=== PATIENT | female | born 1965 | race Caucasian/White ===

== ENCOUNTER 2018-03-07 16:03 | Observation (INO) ==
--- NOTE | 2018-03-07 16:35 | XR ---
EXAM DATE: 03/07/2018 4:31 PM EST AGE/SEX: 52 years / Female INDICATIONS: Chest pain CLINICAL DATA: This is the patient's initial encounter. Patient reports that signs and symptoms have been present for 1 day and indicates a pain score of 5/10. MEDICAL/SURGICAL HISTORY: None. None. COMPARISON: [facility], CHEST PA & LAT, 01/26/2017. . FINDINGS: The lungs are clear without infiltrate, nodule, or mass. There is no appreciable pleural effusion for technique. Heart and mediastinum are unremarkable. CONCLUSION: No acute cardiopulmonary disease. Electronically signed by: Lelia White MD Board Certified Radiologist 03/07/2018 4:33 PM EST
[2018-03-07 16:48] LABS: Activated Partial Thrombo Time 29.8 sec (23.4-31.7); Prothrombin Time 9.8 sec (9.8-11.6)
[2018-03-07 16:54] LABS: Baso # (Auto) 0.1 th/mm3 (0.0-0.2); Baso % (Auto) 0.6 % (0.0-2.0); Eos # (Auto) 0.4 th/mm3 (0.0-0.4); Eos % (Auto) 3.7 % (0.0-4.0); Hematocrit 41.6 % (35.0-46.0); Hemoglobin 13.4 gm/dL (11.6-15.3); Lymph # (Auto) 2.4 th/mm3 (1.0-4.8); Lymph % (Auto) 21.8 % (9.0-44.0); Mean Corpuscular HGB Conc 32.2 % (32.0-36.0); Mean Corpuscular Hemoglobin 26.5 pg (27.0-34.0); Mean Corpuscular Volume 82.3 fL (80.0-100.0); Mean Platelet Volume 8.4 fL (7.0-11.0); Mono # (Auto) 0.6 th/mm3 (0.0-0.9); Mono % (Auto) 5.8 % (0.0-8.0); Neut # (Auto) 7.7 th/mm3 (1.8-7.7); Neut % (Auto) 68.1 % (16.0-70.0); Platelet Count 361 th/mm3 (150-450); Red Blood Count 5.05 mil/mm3 (4.00-5.30); Red Cell Distribution Width 14.5 % (11.6-17.2); White Blood Count 11.2 th/mm3 (4.0-11.0)
--- NOTE | 2018-03-07 17:00 | ED ---
HPI General Chief complaint: Chest Pain Stated complaint: Chest pain Time Seen by Provider: 03/07/18 16:09 Source: patient Mode of arrival: ambulatory Limitations: no limitations History of Present Illness HPI narrative: Patient is a 52 year old female who comes in complaining of chest pain. She says she first had the pain at 3:30 this morning that woke her up from sleep. She says it went away on its own, but came back when she was driving herself to work. She says it is a sharp pain that starts in the left side of her chest and radiates across to the right and into the right arm. She says she felt short of breath while she had the pain. She has not taken anything for pain. She says she has never had this before. Severity is moderate. Related Data Home Medications Medication Instructions Recorded Confirmed hydrochlorothiazide 12.5 mg PO DAILY 03/07/18 03/07/18 losartan 25 mg PO DAILY 03/07/18 03/07/18 Allergies Allergy/AdvReac Type Severity Reaction Status Date / Time No Known Allergies Allergy Verified 03/07/18 16:13 Review of Systems ROS: all other systems reviewed are negative Constitutional Denies chills and Denies fever(s) ENT Denies dizziness Cardiovascular Reports chest pain, Denies edema and Reports dyspnea Respiratory Denies cough and Denies dyspnea Gastrointestinal Denies nausea and Denies vomiting Musculoskeletal Denies myalgias and Denies arthralgias Integumentary/Breasts Denies sores and Denies wounds Neurologic Denies focal weakness and Denies numbness [facility] Medical History Medical History Hypertension (Acute) Surgical History Surgical History No history of previous surgery (Acute) Social History Social History Substance History: No History of Abuse Second Hand Smoke Exposure: No Smoking Status: Never smoker How Often Do You Have a Drink Containing Alcohol: Never Recent Travel in [facility] within the Last 8 Weeks: No Recent Out of Country Travel within the Last 8 Weeks: No Immunization History Tetanus Immunization: <5 Years Exam Narrative Exam Narrative: GENERAL: Awake and alert, in no acute distress. SKIN: Focused skin assessment warm/dry. No wounds or signs of infection. HEAD: Atraumatic. Normocephalic. EYES: Pupils equal and round. No scleral icterus. No injection or drainage. ENT: No nasal bleeding or discharge. Mucous membranes pink and moist. NECK: Trachea midline. No JVD. CARDIOVASCULAR: Regular rate and rhythm. No murmur appreciated. RESPIRATORY: No accessory muscle use. Clear to auscultation. Breath sounds equal bilaterally. GASTROINTESTINAL: Abdomen soft, non-tender, nondistended. MUSCULOSKELETAL: No obvious deformities. No clubbing. No cyanosis. No edema. NEUROLOGICAL: Awake and alert. No obvious cranial nerve deficits. Motor grossly within normal limits. Normal speech. PSYCHIATRIC: Appropriate mood and affect; insight and judgment normal. Course Initial Documented Vital Signs Pulse Rate 78 03/07/18 16:05 Pulse Oximetry 98 03/07/18 16:05 Last Documented Vital Signs Temperature 98.5 F 03/07/18 16:10 Pulse Rate 78 03/07/18 16:10 Respiratory Rate 18 03/07/18 16:10 Blood Pressure 156/76 H 03/07/18 16:10 Pulse Oximetry 98 03/07/18 16:10 Medical Decision Making MDM Narrative Medical decision making narrative: Patient is a 52 year old female who comes in complaining of chest pain. Exam shows no acute abnormalities. IV established, labs sent. Patient connected to the digital experience manager. Labs show no acute abnormalities, Troponin is negative. CXR shows no acute abnormalities. Given Aspirin. Patient will be placed in chest pain center to rule out ACS. Medical Screen Exam Complete: Yes Emergency Medical Condition: Yes Differential Diagnosis Differential Diagnosis: ACS vs NSTEMI vs STEMI Medical Records Medical records reviewed: Yes I reviewed the patient's medical records. Lab Data Lab results reviewed: Yes I reviewed the patient's lab results. Result diagrams: 03/07/18 16:10 03/07/18 16:10 Lab Results 03/07/18 03/07/18 03/07/18 Range/Units 16:10 16:10 16:10 CBC w Diff Auto diff final WBC 11.2 H (4.0-11.0) th/mm3 RBC 5.05 (4.00-5.30) mil/mm3 Hgb 13.4 (11.6-15.3) gm/dL Hct 41.6 (35.0-46.0) % MCV 82.3 (80.0-100.0) fL MCH 26.5 L (27.0-34.0) pg MCHC 32.2 (32.0-36.0) % RDW 14.5 (11.6-17.2) % Plt Count 361 (150-450) th/mm3 MPV 8.4 (7.0-11.0) fL Neut % (Auto) 68.1 (16.0-70.0) % Lymph % (Auto) 21.8 (9.0-44.0) % Casey % (Auto) 5.8 (0.0-8.0) % Eos % (Auto) 3.7 (0.0-4.0) % Baso % (Auto) 0.6 (0.0-2.0) % Neut # (Auto) 7.7 (1.8-7.7) th/mm3 Lymph # (Auto) 2.4 (1.0-4.8) th/mm3 Casey # (Auto) 0.6 (0.0-0.9) th/mm3 Eos # (Auto) 0.4 (0.0-0.4) th/mm3 Baso # (Auto) 0.1 (0.0-0.2) th/mm3 WBC Differential . Differential Comment . PT 9.8 (9.8-11.6) sec INR 1.0 Ratio APTT 29.8 (23.4-31.7) sec Sodium 139 (136-145) meq/L Potassium 3.6 (3.5-5.1) meq/L Chloride 107 (98-107) meq/L Carbon Dioxide 27.8 (21.0-32.0) meq/L Anion Gap 4 L (5-15) meq/L BUN 12 (7-18) mg/dL Creatinine 0.71 (0.50-1.00) mg/dL Estimated GFR 86 L (>89) mL/min Random Glucose 90 (74-106) mg/dL Calcium 8.4 L (8.5-10.1) mg/dL Total Bilirubin 0.2 (0.2-1.0) mg/dL AST 17 (15-37) U/L ALT 22 (10-53) U/L Alkaline Phosphatase 103 (45-117) U/L Total Creatine Kinase 51 (26-192) U/L Troponin I Less than 0.02 L (0.02-0.05) ng/mL Total Protein 7.7 (6.4-8.2) g/dL Albumin 3.2 L (3.4-5.0) g/dL Imaging Data Radiologist's impression: Chest X-Ray 03/07/18 16:17 CONCLUSION: No acute cardiopulmonary disease. ECG Data EKG Prior to Arrival: No Attestation: I personally reviewed and interpreted this ECG as follows: Interpretation: ECG shows NSR at a rate of 75, no ST elevation or depression, LVH Discharge Plan Discharge Disposition Patient Disposition: ED Admit(ED Internal Use Only) Discharge Condition Condition: Stable Discharge Details Diagnosis: Atypical chest pain Physicians Team ED Provider: Isabell Crow Primary Care Provider: Vannessa Hyde Rxs /Orders / Referrals /Forms Prescriptions: No Action losartan 25 mg Tablet 25 mg PO DAILY RF: 0 hydrochlorothiazide 12.5 mg Tablet 12.5 mg PO DAILY RF: 0 Discharge Instructions Patient Printed Instructions: Chest Pain (ED) Status ED Status: With Doctor
[2018-03-07 17:10] LABS: Anion Gap 4 meq/L (5-15); Blood Urea Nitrogen 12 mg/dL (7-18); Calcium 8.4 mg/dL (8.5-10.1); Carbon Dioxide 27.8 meq/L (21.0-32.0); Chloride 107 meq/L (98-107); Glomerular Filtration Rate 86 mL/min (>89); Glucose,Random 90 mg/dL (74-106); Potassium 3.6 meq/L (3.5-5.1); Sodium 139 meq/L (136-145)
[2018-03-07 17:11] LABS: Alanine Aminotransferase 22 U/L (10-53); Albumin 3.2 g/dL (3.4-5.0); Alkaline Phosphatase 103 U/L (45-117); Aspartate Aminotransferase 17 U/L (15-37); Creatine Kinase 51 U/L (26-192); Total Protein 7.7 g/dL (6.4-8.2)
[2018-03-07] MEDS ORDERED: Morphine Inj 4 MG/ML Vial IV.PUSH PRN (18:11)
[2018-03-07 20:50] VITALS: RESP 18
[2018-03-08 09:33] VITALS: BP 130/86; TEMP 96.6
[2018-03-08 09:50] VITALS: PULSE 67
--- NOTE | 2018-03-08 09:51 | P.HPIM ---
History of Present Illness Primary Care Physician: Vannessa Hyde Chief Complaint: Chest pain History of Present Illness: 52-year-old female with known history of hypertension who presented to hospital for evaluation of chest discomfort. Patient states that she was in normal state of health until 3 AM that yesterday morning when she woke up at a middle of sleep with the pain located in the anterior part of her chest and radiating out to the right shoulder and a dullness sensation which was between a 6 - 7 on a pain scale with without any radiation to the neck, back. She denied any diaphoresis, shortness of breath, nausea, vomiting. Patient states that the pain went away in approximately 10 minutes on its own without any medication. The patient indicates that she did well throughout the day and that she went to drive to work in approximately 3 PM she started developing the same pain again, however the pain still lasted longer and that she was on her way to [place] she drove to the [place] [facility]. She states that the pain was approximately 30 minutes and it was still persistent when she came to the emergency department but did resolve on its own without any treatment or medications. Patient was given 4 baby aspirin upon presentation to the ER. The patient been asymptomatic since being in the hospital. Patient states that she has had cardiac workup done many years ago which was all unremarkable when she was first diagnosed with hypertension. But she is not followed by any mess attendant or any recent cardiac workup. Patient had evaluation in the emergency department was unremarkable was recommended by the ER physician of the patient be observed in the chest pain center for further evaluation and management. Diagnosis (1) Atypical chest pain: Review of Systems Review of Systems: all other systems reviewed are negative Cardiovascular: Reports chest pain PMFSH History History Provided By: Patient Medical History Medical History Hypertension (Acute) Surgical History Surgical History No history of previous surgery (Acute) Family History Family History Mother Family history of heart disease Family history of lymphoma Father Family history of heart disease Social History Social History Substance History: No History of Abuse Second Hand Smoke Exposure: No Smoking Status: Never smoker How Often Do You Have a Drink Containing Alcohol: Never Recent Travel in [facility] within the Last 8 Weeks: No Recent Out of Country Travel within the Last 8 Weeks: No Immunization History Tetanus Immunization: <5 Years Medications and Allergies Allergies Allergy/AdvReac Type Severity Reaction Status Date / Time No Known Allergies Allergy Verified 03/07/18 16:13 Home Medications Medication Instructions Recorded Confirmed Type hydrochlorothiazide 12.5 mg PO DAILY 03/07/18 03/07/18 History losartan 25 mg PO DAILY 03/07/18 03/07/18 History Active Medications: Active Medications Morphine Sulfate (Morphine Inj) 2 mg IV.PUSH Q4H PRN PRN Reason: CHEST PAIN Sodium Chloride (Ns Flush) 2 ml IV.FLUSH UNSCH PRN PRN Reason: FLUSH AFTER USING IV ACCESS Last Admin: 03/07/18 16:30 Dose: 2 ml Physical Exam Vital signs: Last Vital Signs Temp 96.6 F L 03/08/18 08:00 Pulse 63 03/08/18 08:00 Resp 18 03/08/18 08:00 BP 130/86 03/08/18 08:00 Pulse Ox 97 03/08/18 08:00 Intake & Output 03/06/18 03/07/18 03/08/18 03/09/18 06:59 06:59 06:59 06:59 Weight 56 kg Narrative: GENERAL: Well-developed, well-nourished, in no acute distress. alert and orientated HEENT: Head is normocephalic without any lesions or masses noted. Facial features are symmetric. Eyes: Pupils equal round reactive to light. Extraocular muscles are intact. Conjunctivae were clear. Oropharyngeal: Pharynx without any erythema edema. Tongue is midline without deviation. Buccal mucosa is moist without any masses or lesions NECK: Supple without any masses. Trachea midline no deviation. No JVD, CARDIAC: Regular rhythm, regular rate. S1/S2 are heard. No murmurs gallops or rubs. LUNGS: Clear to auscultation bilaterally. No wheeze, rhonchi or rales. No use of accessory muscles on inspiration or expiration. ABDOMEN: Soft, nontender. Nondistended. Bowel sounds heard in all 4 quadrants. No organomegaly or masses. Negative rebound, negative guarding EXTREMITIES: No edema, pulses are equal bilaterally. No cyanosis or clubbing NEUROLOGY: Mood and affect appear appropriate. Cranial nerves II through XII grossly intact. Muscle strength 5/5 in upper and lower extremities bilaterally. Deep tendon reflexes are 2+ in upper and lower extremities bilaterally. Results Labs CBC & Chem 7: 03/07/18 16:10 03/07/18 16:10 Imaging Impressions Chest X-Ray 03/07/18 16:17 CONCLUSION: No acute cardiopulmonary disease. Caprini VTE Risk Assessment Caprini VTE Risk Assessment: No/Low Risk (score <= 1) Caprini Risk Assessment Model: Point Value = 1 Point Value = 2 Point Value = 3 Point Value = 5 Age 41-60 Minor surgery BMI > 25 kg/m2 Swollen legs Varicose veins or History of unexplained or recurrent spontaneous Oral contraceptives or hormone replacement Sepsis (< 1 month) Serious lung disease, including pneumonia (< 1 month) Abnormal pulmonary function Acute myocardial infarction Congestive heart failure (< 1 month) History of inflammatory bowel disease Medical patient at bed rest Age 61-74 Arthroscopic surgery Major open surgery (> 45 min) Laparoscopic surgery (> 45 min) Malignancy Confined to bed (> 72 hours) Immobilizing plaster cast Central venous access Age >= 75 History of VTE Family history of VTE Factor V Leiden Prothrombin [id number] Lupus anticoagulant Anticardiolipin antibodies Elevated serum homocysteine Heparin-induced thrombocytopenia Other congenital or acquired thrombophilia Stroke (< 1 month) Elective arthroplasty Hip, pelvis, or leg fracture Acute spinal cord injury (< 1 month) Prophylaxis Regimen: Total Risk Factor Score Risk Level Prophylaxis Regimen 0-1 Low Early ambulation 2 Moderate Order ONE of the following: *Sequential Compression Device (SCD) *Heparin 5000 units SQ BID 3-4 Higher Order ONE of the following medications: *Heparin 5000 units SQ TID *Enoxaparin/Lovenox 40 mg SQ daily (WT < 150 kg, CrCl > 30 mL/min) *Enoxaparin/Lovenox 30 mg SQ daily (WT < 150 kg, CrCl > 10-29 mL/min) *Enoxaparin/Lovenox 30 mg SQ BID (WT < 150 kg, CrCl > 30 mL/min) AND/OR *Sequential Compression Device (SCD) 5 or more Highest Order ONE of the following medications: *Heparin 5000 units SQ TID (Preferred with Epidurals) *Enoxaparin/Lovenox 40 mg SQ daily (WT < 150 kg, CrCl > 30 mL/min) *Enoxaparin/Lovenox 30 mg SQ daily (WT < 150 kg, CrCl > 10-29 mL/min) *Enoxaparin/Lovenox 30 mg SQ BID (WT < 150 kg, CrCl > 30 mL/min) AND *Sequential Compression Device (SCD) Assessment and Plan (1) Atypical chest pain: Code(s): R07.89 - Other chest pain Status: Acute Plan Chest pain, atypical Patient with increased risk factors to include age, hypertension, family history of heart disease Patient been ruled out for acute coronary event with serial cardiac enzymes that are negative EKGs were performed reviewed by myself which does show sinus rhythm without any acute abnormalities Exercise stress test was performed and indicated no signs of perfusion defect, low risk. Continue aspirin, Groom/morphine for pain control Continue monitor telemetry Patient is ruled out for acute coronary event and underlying ischemia. Patient be discharged home with outpatient follow-up. Hypertension Continue home medications DVT prevention Low risk, early ambulation Discharge Planning: Discharge home in stable condition Activity: Ad phyllis. Diet: Healthy heart diet Medication per medication reconciliation Follow-up with primary medical doctor in 1 week H&P: Quality VTE Deep Vein Thrombosis/Pulmonary Embolism Present on Admission: No
[2018-03-08] MEDS ORDERED: Regadenoson Inj 0.4 MG/5 ML Syringe IV.PUSH ONE ×2 (10:49→12:13)
[2018-03-08 13:31] VITALS: O2SAT 95
--- NOTE | 2018-03-08 14:10 | NM ---
EXAM DATE: 03/08/2018 1:49 PM EST AGE/SEX: 52 years / Female INDICATIONS:Angina. . Chest pain. Abnormal standard ETT. CLINICAL DATA: This is the patient's initial encounter. Patient reports that signs and symptoms have been present for 1 day and indicates a pain score of 2/10. MEDICAL/SURGICAL HISTORY: Hypertension. None. Tubal ligation. COMPARISON: No prior exams available for comparison. DOSE: 8.8 mCi Tc 99m Myoview at rest 26.5 mCi [id number] at stress 0.4 mg Lexiscan STRESS SYMPTOMS: Chest tightness. EJECTION FRACTION: 67 % TECHNIQUE: The patient underwent pharmacologic stress with infusion of prescribed dose. Continuous ECG tracing was monitored during stress. Gated SPECT imaging was performed after stress and conventi onal SPECT imaging was performed at rest. The examination was performed on a SPECT/CT scanner, both attenuation and non-corrected datasets were reviewed. FINDINGS: Distribution: The maximum perfused segment at stress is in the inferior wall. Perfusion Study: The pattern of perfusion at stress show fixed diminished perfusion to the apex wit h no reversibility to suggest ischemia.. Gated Study: There are intact wall motion and wall thickening without hypokinetic or dyskinetic segm ents. The ejection fraction is calculated at 67%. RISK CATEGORY: Low (<1% Annual Mortality Rate) CONCLUSION: 1. Fixed diminished perfusion to the apex suggesting apical thinning versus old apical infarct. 2. No scintigraphic findings of ischemia. 3. Adequate wall motion throughout been estimated ejection fraction of 67%. Electronically signed by: Oni Underwood MD Board Certified Radiologist 03/08/2018 2:09 PM EST
--- NOTE | 2018-03-08 16:00 | TR ---
Date Performed: 03/08/2018 Time Performed: 10:24:20 DOCTOR: Venu Soares DRUG LIST: CLINICAL HISTORY: REASON FOR TEST: Chest pain REASON FOR ENDING: OBSERVATION: CONCLUSION: Patient tolerated VARINDER protocol with Total Exercise Time=2:00 Maximum BZ=676 % Max HR Achieved=82.0% Resting WC=168/86 Testing stopped secondary to arrhythmia with bigeminy. when exerc ise stopped arrhythmia resovled and patient went back to Sinus rhythm , Patient was asymptomatic during procedure. COMMENTS: Patient exercised using the Varinder protocol. No electrocardiographic changes were seen to suggest ischemia. Hemodynamic response to exercise was normal. No significant arrhythmia was prese nt.
--- NOTE | 2018-03-08 20:56 | ECG ---
Date Performed: 03/08/2018 Time Performed: 08:44:50 PTAGE: 52 years EKG: Sinus rhythm VOLTAGE CRITERIA FOR LVH ABNORMAL ECG PREVIOUS TRACING : 03/07/2018 16.04 Since the previous tracing, no significant change noted DOCTOR: Dante Meyer Interpretating Date/Time 03/08/2018 20:56:13
--- NOTE | 2018-03-08 21:20 | ECG ---
Date Performed: 03/07/2018 Time Performed: 16:04:53 PTAGE: 52 years EKG: Sinus rhythm VOLTAGE CRITERIA FOR LVH ABNORMAL ECG INTERPRETATION BASED ON A DEFAULT AGE OF 40 YEARS NO PREVIOUS TRACING DOCTOR: Dante Meyer Interpretating Date/Time 03/08/2018 21:18:15
--- NOTE | 2018-03-09 10:47 | TR ---
Date Performed: 03/08/2018 Time Performed: 12:30:18 DOCTOR: Maury Contreras DRUG LIST: CLINICAL HISTORY: REASON FOR TEST: Angina REASON FOR ENDING: OBSERVATION: CONCLUSION: Lexiscan stress test was performed under standard four minute protocol. Radionuclide was injected one minute prior to ending the test. No electrocardiographic abormalities were present to suggest ischemia. Nuclear imaging and interpretation are pending. COMMENTS:
== END 2018-03-08 16:16 | disposition home or self-care (01) ==
LOC: PHED 16:03 → PHEDA 16:03 → PH3 18:40
PROVIDERS: ADMIT Internal Medicine; ATTEND Internal Medicine
DX: R94.31 Abnormal electrocardiogram [ECG] [EKG]; Z80.7 Family history of other malignant neoplasms of lymphoid, hematopoietic and related tissues; I10 Essential (primary) hypertension; R07.89 Other chest pain; Z82.49 Family history of ischemic heart disease and other diseases of the circulatory system
CPT/HCPCS: 71010; 71045; 78452; 80053; 82550; 84484; 85025; 85610; 85730; 93005; 93017; 99285; A9502; G0378; J2785; Q9969